=== PATIENT | female | born 2000 | race Caucasian/White ===

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

== ENCOUNTER 2021-09-28 03:01 | Emergency (ER) | payer OTHER, SELFPAY ==
[2021-09-28] MEDS ORDERED: Ondansetron ODT 4 MG TAB ONE ×2 (03:30→03:39)
== END 2021-09-28 05:40 | disposition home or self-care (01) ==
LOC: ERS 03:01
DX: F12.10 Cannabis abuse, uncomplicated (principal)
CPT/HCPCS: 99283; Q0162